=== PATIENT | female | born 1945 | race African-American/Black ===

== ENCOUNTER 2018-08-12 22:07 | Emergency (ER) | payer MEDICARE, MEDICAID ==
--- NOTE | 2018-08-12 22:37 | RADIOLOGY REPORT (SQ) ---
EXAM DESCRIPTION: XR ANKLE 2 VIEWS COMPLETED DATE/TME: 08/12/2018 00:00 CLINICAL HISTORY: 72 years, Female, ankle gave out this afternoon COMPARISON: None. NUMBER OF VIEWS: 2 TECHNIQUE: 2 views right ankle LIMITATIONS: None. FINDINGS: Osteopenia. Minimally displaced medial malleolus fracture. Mildly displaced lateral malleolar fracture as well. Diffuse soft tissue swelling. Small plantar heel spurs. Slight widening of the ankle mortise anteriorly on the lateral view without caryn dislocation IMPRESSION: Medial and lateral malleolus fractures with widening of the anterior ankle mortise on the lateral view. Osteopenia. Soft tissue swelling copyright 2010 [employer]- All Rights Reserved
[2018-08-12] MEDS ORDERED: ONDANSETRON 4 MG TAB.RAPDIS PO ONE (22:53)
[2018-08-12] MEDS ORDERED: OXYCODONE-ACETAMINOPHEN 5-325 MG TABLET PO ONE (22:53)
--- NOTE | 2018-08-13 01:08 | RADIOLOGY REPORT (SQ) ---
EXAM DESCRIPTION: XR ANKLE 2 VIEWS COMPLETED DATE/TME: 08/12/2018 22:54 CLINICAL HISTORY: 72 years, Female, post-reduction view, wait for call COMPARISON: Right ankle x-ray from today's date NUMBER OF VIEWS: 2 TECHNIQUE: 2 view right ankle LIMITATIONS: None. FINDINGS: Casting material obscures bony detail. Improvement in the widening of the tibiotalar joint space. Medial and lateral malleoli fractures are again noted IMPRESSION: Improved alignment as above copyright 2010 [employer]- All Rights Reserved
[2018-08-13 01:17] VITALS: BP 117/53
--- NOTE | 2018-08-13 08:01 | ER Document Report ---
Entered by ONEYDA HEART SCRIBE 08/12/18 [id number] Acting as scribe for:CHINO VALLEJO DO ED General - General Chief Complaint: Ankle Injury Stated Complaint: RIGHT ANKLE PAIN Time Seen by Provider: 08/12/18 22:35 Primary Care Provider: BUZZ MACHADO MD [Primary Care Provider] - Follow up as needed MARICARMEN LEDEZMA MD [ACTIVE STAFF] - 08/15/18 Mode of Arrival: Wheelchair Information source: Patient Notes: Patient is a 33-year-old female with a seizure disorder presents to the emergency department complaining of right ankle pain onset tonight. Patient states that her right ankle suddenly "gave out" while dancing. Patient denies any other focal symptoms or injuries at this time. Patient states she is currently prescribed Dilantin. She denies being on blood thinners. TRAVEL OUTSIDE OF THE [place] IN LAST 30 DAYS: No - Related Data Allergies/Adverse Reactions: No Known Allergies Allergy (Verified 05/22/12 09:32) Past Medical History - General Information source: Patient - Social History Smoking Status: Never Smoker Cigarette use (# per day): No Chew tobacco use (# tins/day): Yes Smoking Education Provided: No Frequency of alcohol use: Social Drug Abuse: None Family History: Reviewed & Not Pertinent Patient has suicidal ideation: No Patient has homicidal ideation: No - Past Medical History Cardiac Medical History: Reports: Hx Hypertension Neurological Medical History: Reports: Hx Seizures Renal/ Medical History: Denies: Hx Peritoneal Dialysis GI Medical History: Reports: Hx Gastroesophageal Reflux Disease Musculoskeletal Medical History: Reports Hx Arthritis Past Surgical History: Reports: Hx Appendectomy, Hx Cholecystectomy, Hx Hysterectomy - Immunizations Hx Diphtheria, Pertussis, Tetanus Vaccination: No Review of Systems - Review of Systems Constitutional: No symptoms reported EENT: No symptoms reported Cardiovascular: No symptoms reported Respiratory: No symptoms reported Gastrointestinal: No symptoms reported Genitourinary: No symptoms reported Female Genitourinary: No symptoms reported Musculoskeletal: See HPI Skin: No symptoms reported Hematologic/Lymphatic: No symptoms reported Neurological/Psychological: No symptoms reported -: Yes All other systems reviewed and negative Physical Exam - Vital signs Vitals: Temp Pulse Resp BP Pulse Ox 97.3 F 78 16 112/66 99 08/12/18 22:16 08/12/18 22:16 08/12/18 22:16 08/12/18 22:16 08/12/18 22:16 - Notes Notes: GENERAL: Alert, interacts well. No acute distress. HEAD: Normocephalic, atraumatic. EYES: Pupils equal, round, and reactive to light. Extraocular movements intact. ENT: Oral mucosa moist, tongue midline. NECK: Full range of motion. Supple. Trachea midline. LUNGS: Trace respiratory wheezing anteriorly. No rales or rhonchi. No respiratory distress. HEART: Regular rate and rhythm. No murmurs, gallops, or rubs. ABDOMEN: Soft, non-tender. Non-distended. Bowel sounds present in all 4 quadrants. No guarding, rigidity, or rebound. EXTREMITIES: Moves all 4 extremities spontaneously. Right ankle is grossly swollen, tender to palpate the distal bilateral malleoli. Normal sensations, able to wiggle toes, good capillary refill. Radial and dorsalis pedis pulses 2/4 bilaterally. No cyanosis. NEUROLOGICAL: Alert and oriented x3. Normal speech. PSYCH: Normal affect, normal mood. SKIN: Warm, dry. Course - Re-evaluation Re-evalutation: 08/13/18 01:05 Right ankle shows medial and lateral malleolus fractures with widening of the anterior ankle mortise joint in the lateral view, minimal displacement. No dislocation. Patient's ankle was splinted using a stirrup splint and short leg posterior splint. Rechecked, splint is in good position. Discharged to home with medication for pain control and recommendation to follow-up with orthopedics as an outpatient on Wednesday. Call the office for an appointment. - Vital Signs Vital signs: Temp Pulse Resp BP Pulse Ox 97.7 F 99 16 117/53 L 99 08/13/18 01:11 08/13/18 01:11 08/13/18 01:11 08/13/18 01:11 08/12/18 22:16 Procedures - Immobilization Right Ankle Pre-Proc Neuro Vasc Exam: Normal Immobilizer type: Other - Ankle stirrup and short leg posterior. Performed by: PCT Post-Proc Neuro Vasc Exam: Normal, Unchanged from pre-exam Alignment checked and good: Yes Discharge - Discharge Clinical Impression: Fracture of distal end of tibia with fibula Qualifiers: Encounter type: initial encounter Fracture type: closed Laterality: right Qualified Code(s): S82.831A - Other fracture of upper and lower end of right fibula, initial encounter for closed fracture; S82.301A - Unspecified fracture of lower end of right tibia, initial encounter for closed fracture Traumatic closed fracture of distal tibia with fibula with minimal displacement Qualifiers: Encounter type: initial encounter Laterality: right Qualified Code(s): S82.301A - Unspecified fracture of lower end of right tibia, initial encounter for closed fracture; S82.831A - Other fracture of upper and lower end of right fibula, initial encounter for closed fracture Condition: Stable Disposition: HOME, SELF-CARE Additional Instructions: Fractured Ankle (Bimalleolar) You have a fracture of both bones of the lower leg at the ankle. If there is dispacement of the bones from their proper alignment, manipulation of the ankle and foot may be necessary to re-align the bones properly. This fracture wll require a cast for healing and some of the more serious fractures of this type will require surgery. If surgery is not required, the bones requires only protection and sufficient time for healing. The initial treatment is immobilization, elevation, and ice packs. Depending on the type of fracture, immobilization may consist of a splint or cast. The length of time required for healing depends on the type of fracture. You will be referred to an orthopedic surgeon who will re-assess you periodically to make certain that the bone heals without complications. It's important that you follow the instructions given you. Please call the orthopedic surgeon on Wednesday to arrange a follow-up appointment. Splint Pending Casting Your injury can't be casted until the swelling has subsided. Therefore, a temporary splint has been placed to protect the injury. Full use of an injured area is not possible in a splint. You should follow the doctor's instructions concerning rest, ice, and elevation of the injury. Never do anything which causes pain under the splint. Keep the splint on ALL THE TIME until you return for casting. If there is unexpected severe pain, or numbness, discoloration, or swelling beyond the splint, you should return at once. Prescriptions: Hydrocodone/Acetaminophen [Salley 5-325 mg Tablet] 1 - 2 tab PO Q6HP PRN #20 tablet PRN Reason: Referrals: BUZZ MACHADO MD [Primary Care Provider] - Follow up as needed MARICARMEN LEDEZMA MD [ACTIVE STAFF] - 08/15/18 I personally performed the services described in the documentation, reviewed and edited the documentation which was dictated to the scribe in my presence, and it accurately records my words and actions.
== END 2018-08-13 01:38 | disposition home or self-care (01) ==
LOC: ER 22:07
DX: S82.831A Other fracture of upper and lower end of right fibula, initial encounter for closed fracture (principal); S82.301A Unspecified fracture of lower end of right tibia, initial encounter for closed fracture; X58.XXXA Exposure to other specified factors, initial encounter; Y93.41 Activity, dancing; I10 Essential (primary) hypertension; Z90.49 Acquired absence of other specified parts of digestive tract; Z90.710 Acquired absence of both cervix and uterus
CPT/HCPCS: 99283; 73600; 29515; A9270 ×2; S0119

== ENCOUNTER 2018-08-17 05:24 | Day surgery (SDC) | payer MEDICARE, MEDICAID ==
[~2018-08-17 05:24] MED LIST: CEFAZOLIN 2 GM/D5W RTU 2 GM/50 ML RTUPB IV ONE
[2018-08-17 06:26] LABS: ABSOLUTE BASOPHILS # (AUTO) 0.1 10^3/uL (0.0-0.2); ABSOLUTE EOSINOPHILS # (AUTO) 0.4 10^3/uL (0.0-0.6); ABSOLUTE LYMPHOCYTES (AUTO) 1.8 10^3/uL (0.5-4.7); ABSOLUTE MONOCYTES (AUTO) 0.4 10^3/uL (0.1-1.4); ABSOLUTE NEUT (AUTO) 1.4 10^3/uL (1.7-8.2); EOSINOPHILS % (AUTO) 10.6 % (0-6); HEMATOCRIT 28.2 % (36.0-47.0); HEMOGLOBIN 9.2 g/dL (12.0-15.5); MEAN CORPUSCULAR HEMOGLOBIN 33.9 pg (27.0-33.4); MEAN CORPUSCULAR HGB CONC 32.7 g/dL (32.0-36.0); MEAN CORPUSCULAR VOLUME 104 fl (80-97); MONOCYTES % (AUTO) 9.4 % (3-13); PLATELET COUNT 230 10^3/uL (150-450); RED BLOOD COUNT 2.73 10^6/uL (3.72-5.28); RED CELL DISTRIBUTION WIDTH 16.9 % (11.5-14.0); TOTAL CELLS COUNTED % (AUTO) 100 %; WHITE BLOOD COUNT 4.2 10^3/uL (4.0-10.5)
[2018-08-17 06:42] LABS: ANION GAP 8 (5-19); BLOOD UREA NITROGEN 42 mg/dL (7-20); CALCIUM 9.5 mg/dL (8.4-10.2); CARBON DIOXIDE 15 mmol/L (22-30); CHLORIDE 116 mmol/L (98-107); GLUCOSE 90 mg/dL (75-110); POTASSIUM 4.9 mmol/L (3.6-5.0)
--- NOTE | 2018-08-17 06:58 | RADIOLOGY REPORT (SQ) ---
EXAM DESCRIPTION: XR CHEST 1 VIEW COMPLETED DATE/TME: 08/17/2018 00:00 CLINICAL HISTORY: 72 years, Female, preop. BED 6 COMPARISON: None. NUMBER OF VIEWS: One TECHNIQUE: AP view of the chest LIMITATIONS: None. FINDINGS: The lungs are clear. The heart is normal in size. There is no pneumothorax or pleural effusion. There is no acute fracture. IMPRESSION: No acute cardiopulmonary abnormality copyright 2010 [employer]- All Rights Reserved
[2018-08-17] MEDS ORDERED: LIDOCAINE 2% INJ-PF (100 MG/5 ML) SYRINGE ONE (07:03)
[2018-08-17] MEDS ORDERED: FENTANYL CITRATE INJ/PF 250 MCG/5 ML AMPULE ONE (07:03)
[2018-08-17] MEDS ORDERED: MIDAZOLAM 2 MG/2 ML INJ ONE (07:03)
[2018-08-17] MEDS ORDERED: HYDROMORPHONE HCL INJ/PF 2 MG/ML AMPULE ONE (07:03)
[2018-08-17] MEDS ORDERED: PROPOFOL INJ 200 MG/20 ML VIAL IV ONE (07:04)
[2018-08-17] MEDS ORDERED: BUPIVACAINE HCL 0.5%-EPI 1:200000 INJ/PF 30 ML VIAL ONE (07:13)
[2018-08-17] MEDS ORDERED: DIPHENHYDRAMINE HCL 50 MG/ML VIAL IV PRN (08:03)
[2018-08-17] MEDS ORDERED: PROMETHAZINE HCL INJ 25 MG/1 ML VIAL IV PRN ×2 (08:03)
[2018-08-17] MEDS ORDERED: FENTANYL CITRATE INJ/PF 100 MCG/2 ML AMPUL IV PRN ×3 (08:03)
[2018-08-17] MEDS ORDERED: MEPERIDINE HCL/PF INJ 25 MG/1 ML DISP.SYRIN IV PRN (08:03)
[2018-08-17] MEDS ORDERED: HYDROMORPHONE HCL INJ/PF 2 MG/ML AMPULE IV PRN (08:04)
--- NOTE | 2018-08-17 08:24 | Discharge Summary ---
Discharge Summary (SDC) - Discharge Final Diagnosis: Right bimalleolar ankle fracture Date of Surgery: 08/17/18 Discharge Date: 08/17/18 Condition: Good Treatment or Instructions: Touchdown weightbearing restriction right lower extremity. Elevate when possible. Prescriptions: Oxycodone HCl/Acetaminophen [Percocet 5-325 mg Tablet] 1 tab PO Q6 PRN #40 tablet PRN Reason: Referrals: BUZZ MACHADO MD [Primary Care Provider] - Discharge Diet: As Tolerated, Regular Respiratory Treatments at Home: Deep Breathing/Coughing Discharge Activity: Balance Activity w/Rest, No Driving, No tub bath Home Care Assistance: None Needed Adaptive Devices on Discharge: Axillary Crutches, Rolling Walker Report the Following to Your Physician Immediately: Shortness of Breath, Fever over 101 Degrees, Drainage-Foul Smelling
--- NOTE | 2018-08-17 08:26 | Operative Report ---
Operative Report DATE OF SURGERY: 08/17/18 PREOPERATIVE DIAGNOSIS: Right bimalleolar ankle fracture OPERATION: Open reduction internal fixation right bimalleolar ankle fracture SURGEON: MARICARMEN LEDEZMA ANESTHESIA: GA ESTIMATED BLOOD LOSS: 25 PROCEDURE: With the patient supine on the operating table the right lower extremities prepped and draped in a sterile fashion. Limb is elevated for exsanguination tourniquet inflated 280 torr. A longitudinal incision was made over the distal fibula and sharp dissection was carried the incision through the periosteum. The periosteum is elevated. The underlying fracture was identified. Its reduced anatomically under direct visualization held in place a lobster claw clamp. Subsequently Hidalgo titanium distal fibula plate is applied and secured with 5 screws distally and 4 screws proximally. Next longitudinal incision was made over the medial malleolus. Under direct visualization there is an anatomic reduction of the medial malleolus fracture. Is held in place with 2 pins which are subsequently used for 4 mm cannulated screws to secure the reduction. Hardware placement fracture reduction check fluoroscopically in 2 planes and felt to be adequate. At this point the tourniquet is deflated. Hemostasis obtained with electrocautery. The wound is irrigated with bulb lavage. Local anesthesia is infiltrated. The wound was then closed in layers interrupted Vicryl followed by guillermina. A sterile compressive dressing posterior plaster splint were applied and the patient's return to the PACU in satisfactory condition.
[2018-08-17] MEDS: FENTANYL CITRATE INJ/PF 100 MCG/2 ML AMPUL ONE ×2 (08:50→08:55)
--- NOTE | 2018-08-17 09:14 | RADIOLOGY REPORT (SQ) ---
EXAM DESCRIPTION: NO CHG FLUORO; ANKLE RIGHT AP/LATERAL COMPLETED DATE/TIME: 08/17/2018 8:59 am REASON FOR STUDY: ORIF RIGHT ANKLE ASST WITH FLUORO IN OR S82.841A DISPLACED BIMALLEOLAR FRACTURE O F RIGHT LOWER LEG, Z79.899 OTHER LONGTERM (CURRENT) DRUG THERAPY COMPARISON: Preoperative radiographs FLUOROSCOPY TIME: 0.2 minutes 3 images saved to PACS. TECHNIQUE: Intra-operative images acquired during surgical procedure to evaluate progress. NUMBER OF IMAGES: 3 LIMITATIONS: None. FINDINGS: Patient undergoing open reduction internal fixation of ankle fractures. Please correlate with operative note. IMPRESSION: IMAGE(S) OBTAINED DURING PROCEDURE. COMMENT: Quality ID 145: Final reports for procedures using fluoroscopy that document radiation exp osure indices, or exposure time and number of fluorographic images (if radiation exposure indices are not available) Please consult full operative report of the attending physician for description of the procedure. TECHNICAL DOCUMENTATION: JOB ID: [id number] [employer]- All Rights Reserved Reading location - IP/workstation name: [email or web address]
--- NOTE | 2018-08-17 09:14 | RADIOLOGY REPORT (SQ) ---
EXAM DESCRIPTION: NO CHG FLUORO; ANKLE RIGHT AP/LATERAL COMPLETED DATE/TIME: 08/17/2018 8:59 am REASON FOR STUDY: ORIF RIGHT ANKLE ASST WITH FLUORO IN OR S82.841A DISPLACED BIMALLEOLAR FRACTURE O F RIGHT LOWER LEG, Z79.899 OTHER LONG-TERM (CURRENT) DRUG THERAPY COMPARISON: Preoperative radiographs FLUOROSCOPY TIME: 0.2 minutes 3 images saved to PACS. TECHNIQUE: Intra-operative images acquired during surgical procedure to evaluate progress. NUMBER OF IMAGES: 3 LIMITATIONS: None. FINDINGS: Patient undergoing open reduction internal fixation of ankle fractures. Please correlate with operative note. IMPRESSION: IMAGE(S) OBTAINED DURING PROCEDURE. COMMENT: Quality ID 145: Final reports for procedures using fluoroscopy that document radiation exp osure indices, or exposure time and number of fluorographic images (if radiation exposure indices are not available) Please consult full operative report of the attending physician for description of the procedure. TECHNICAL DOCUMENTATION: JOB ID: [id number] [email or web address]- All Rights Reserved Reading location - IP/workstation name: [email or web address]
[2018-08-17] MEDS ORDERED: OXYCODONE-ACETAMINOPHEN 5-325 MG TABLET PO ONE (09:30)
[2018-08-17] MEDS ORDERED: PHENYLEPHRINE HCL INJ/PF 10 MG/1 ML SDV ONE (11:43)
[2018-08-17] MEDS ORDERED: ONDANSETRON HCL INJ/PF 4 MG/2 ML SDV ONE (11:43)
[2018-08-17] MEDS ORDERED: DEXAMETHASONE SOD PHOSPHATE INJ 4 MG/1 ML VIAL ONE (11:43)
[2018-08-17 11:44] VITALS: BP 108/61
--- NOTE | 2018-08-17 17:55 | EKG REPORT ---
SEVERITY:- NORMAL ECG - SINUS RHYTHM : Confirmed by: Tigre Berumen 17-Aug-2018 17:54:57
== END 2018-08-17 10:35 | disposition home or self-care (01) ==
LOC: OROUT 05:24
PROVIDERS: ATTEND Orthopaedic Surgery
DX: S82.841A Displaced bimalleolar fracture of right lower leg, initial encounter for closed fracture (principal); W19.XXXA Unspecified fall, initial encounter; E78.00 Pure hypercholesterolemia, unspecified; J45.909 Unspecified asthma, uncomplicated; K21.9 Gastro-esophageal reflux disease without esophagitis; I10 Essential (primary) hypertension; G40.901 Epilepsy, unspecified, not intractable, with status epilepticus; Z79.899 Other long term (current) drug therapy; Z79.51 Long term (current) use of inhaled steroids
CPT/HCPCS: 36415; 85025; 80048; 73600; 71045; 93005; 93010; 01480; 27814; C1713 ×7; C1769; J3490; J1100; J3010 ×2; J2001; J1170; J2370; J2405; J2704; J0690; J2250

== ENCOUNTER 2019-12-01 11:23 | Emergency (ER) | payer MEDICARE, MEDICAID ==
--- NOTE | 2019-12-01 11:56 | ER Document Report ---
ED Medical Screen (RME) - General Chief Complaint: Shoulder Injury Stated Complaint: LEFT ARM PAIN/FALL Time Seen by Provider: 12/01/19 11:47 Primary Care Provider: BUZZ BOBO MD [Primary Care Provider] - Follow up as needed Mode of Arrival: Ambulatory Information source: Patient Notes: 74-year-old female presented to ED for pain to the left shoulder. She states she fell on Wednesday hitting her shoulder on a TV stand. The shoulder is ecchymotic swollen very painful very little range of motion to the shoulder. She states she was taking meloxicam and ibuprofen and she was told by Dr. Bobo to stop taking the medicines and to come into the emergency room right away. She states she was also took Valium this morning for the pain. She is alert oriented respirations regular nonlabored speaking in full sentences. I have greeted and performed a rapid initial assessment of this patient. A comprehensive ED assessment and evaluation of the patient, analysis of test results and completion of medical decision making process will be conducted by an additional ED providers. TRAVEL OUTSIDE OF THE [place] IN LAST 30 DAYS: No - Related Data Allergies/Adverse Reactions: No Known Allergies Allergy (Verified 12/01/19 11:31) Home Medications: blood pressure pill Past Medical History - Social History Chew tobacco use (# tins/day): No Frequency of alcohol use: Occasional Drug Abuse: None - Past Medical History Cardiac Medical History: Reports: Hx Hypertension Denies: Hx Coronary Artery Disease, Hx Heart Attack Pulmonary Medical History: Reports: Hx Asthma Denies: Hx Bronchitis, Hx COPD, Hx Pneumonia Neurological Medical History: Reports: Hx Seizures. Denies: Hx Cerebrovascular Accident Renal/ Medical History: Denies: Hx Peritoneal Dialysis GI Medical History: Reports: Hx Gastroesophageal Reflux Disease Musculoskeltal Medical History: Reports Hx Arthritis Past Surgical History: Reports: Hx Appendectomy, Hx Cholecystectomy, Hx Hysterectomy - Immunizations Hx Diphtheria, Pertussis, Tetanus Vaccination: No Physical Exam - Vital signs Vitals: Temp Pulse Resp BP Pulse Ox 98.4 F 101 H 18 127/56 H 99 12/01/19 11:28 12/01/19 11:28 12/01/19 11:28 12/01/19 11:28 12/01/19 11:28 Course - Vital Signs Vital signs: Temp Pulse Resp BP Pulse Ox 98.4 F 101 H 18 127/56 H 99 12/01/19 11:28 12/01/19 11:28 12/01/19 11:28 12/01/19 11:28 12/01/19 11:28 Doctor's Discharge - Discharge Referrals: BUZZ BOBO MD [Primary Care Provider] - Follow up as needed
[2019-12-01 12:26] LABS: ABSOLUTE EOSINOPHILS # (AUTO) 0.3 10^3/uL (0.0-0.6); ABSOLUTE MONOCYTES (AUTO) 0.3 10^3/uL (0.1-1.4); ABSOLUTE NEUT (AUTO) 1.6 10^3/uL (1.7-8.2); BASOPHILS % (AUTO) 0.9 % (0-2); EOSINOPHILS % (AUTO) 7.8 % (0-6); HEMATOCRIT 24.4 % (36.0-47.0); HEMOGLOBIN 8.4 g/dL (12.0-15.5); LYMPHOCYTES % (AUTO) 46.6 % (13-45); MEAN CORPUSCULAR HEMOGLOBIN 36.2 pg (27.0-33.4); MEAN CORPUSCULAR HGB CONC 34.5 g/dL (32.0-36.0); MEAN CORPUSCULAR VOLUME 105 fl (80-97); PLATELET COUNT 383 10^3/uL (150-450); RED BLOOD COUNT 2.32 10^6/uL (3.72-5.28); RED CELL DISTRIBUTION WIDTH 16.2 % (11.5-14.0); SEGMENTED NEUTROPHILS % (AUTO) 37.7 % (42-78); TOTAL CELLS COUNTED % (AUTO) 100 %; WHITE BLOOD COUNT 4.2 10^3/uL (4.0-10.5)
[2019-12-01 12:32] LABS: INTERNATIONAL RATION (INR) 0.93; PARTIAL THROMBOPLASTIN TIME 24.1 SEC (23.5-35.8); PROTHROMBIN TIME 12.7 SEC (11.4-15.4)
--- NOTE | 2019-12-01 12:33 | RADIOLOGY REPORT (SQ) ---
EXAM DESCRIPTION: SHOULDER LEFT 2 OR MORE VIEWS IMAGES COMPLETED DATE/TIME: 12/01/2019 12:21 pm REASON FOR STUDY: Pain deformity left shoulder swelling bruising COMPARISON: None. NUMBER OF VIEWS: Two views. TECHNIQUE: Frontal and Y-view acquired of the left shoulder. LIMITATIONS: None. FINDINGS: MINERALIZATION: Decreased. BONES: Highly comminuted left humeral surgical neck fracture. Mild shortening and medial displacemen t of the distal fracture fragment. No evidence of glenohumeral dislocation JOINTS: No dislocation. VISUALIZED LUNGS AND RIBS: No pneumothorax. No rib fracture. SOFT TISSUES: No radiopaque foreign body. OTHER: No other significant finding. IMPRESSION: Highly comminuted left humeral surgical neck fracture with mild shortening and medial di splacement of the distal fracture fragment. TECHNICAL DOCUMENTATION: JOB ID: [id number] 2010 [employer]- All Rights Reserved Reading location - IP/workstation name: [email or web address]
[2019-12-01] MEDS ORDERED: MORPHINE SULFATE 10 MG/ML INJ IM ONE (12:39)
[2019-12-01 12:46] LABS: ALBUMIN 3.5 g/dL (3.5-5.0); ALKALINE PHOSPHATASE 61 U/L (38-126); ANION GAP 12 (5-19); ASPARTATE AMINO TRANSFERASE 15 U/L (14-36); BILIRUBIN,DIRECT 0.3 mg/dL (0.0-0.4); BILIRUBIN,TOTAL 0.3 mg/dL (0.2-1.3); BLOOD UREA NITROGEN 33 mg/dL (7-20); CALCIUM 9.2 mg/dL (8.4-10.2); CARBON DIOXIDE 22 mmol/L (22-30); CHLORIDE 103 mmol/L (98-107); GLUCOSE 102 mg/dL (75-110); POTASSIUM 3.2 mmol/L (3.6-5.0); TOTAL PROTEIN 6.4 g/dL (6.3-8.2)
[2019-12-01] MEDS ORDERED: ONDANSETRON HCL INJ/PF 4 MG/2 ML SDV IV ONE (14:54)
[2019-12-01] MEDS ORDERED: MORPHINE SULFATE 10 MG/ML INJ IV ONE (14:55)
--- NOTE | 2019-12-01 14:55 | ER Document Report ---
ED Extremity Problem, Upper - General Chief Complaint: Shoulder Injury Stated Complaint: LEFT ARM PAIN/FALL Time Seen by Provider: 12/01/19 11:47 Primary Care Provider: BUZZ MACHADO MD [Primary Care Provider] - Follow up in 3-5 days (for follow up for your low potassium and low hemoglobin (anemia)) BATSHEVA GONZALEZ MD [ACTIVE STAFF] - Follow up in 3-5 days Mode of Arrival: Ambulatory TRAVEL OUTSIDE OF THE [place] IN LAST 30 DAYS: No - HPI Notes: 74-year-old female with history of seizures, hypertension to the emergency department with her daughter with complaints of left arm injury that occurred 1 week ago. She states she was in her home when she had a mechanical fall. She states she slipped and fell and struck her arm. She states that she thought maybe she had just bruised it. She states that she is not really able to move and has not been able to move it for about a week. She has been putting Voltaren gel on it and taking it off the counter. She states that the pain is gotten significant enough that she feels like she needs to get seen. She denies any head injuries or losing consciousness. She denies any other injuries. She denies any hip pain. - Related Data Allergies/Adverse Reactions: No Known Allergies Allergy (Verified 12/01/19 11:31) Home Medications: blood pressure pill Past Medical History - General Information source: Patient - Social History Smoking Status: Never Smoker Chew tobacco use (# tins/day): No Frequency of alcohol use: Occasional Drug Abuse: None Family History: Reviewed & Not Pertinent Patient has homicidal ideation: No - Past Medical History Cardiac Medical History: Reports: Hx Hypertension Denies: Hx Coronary Artery Disease, Hx Heart Attack Pulmonary Medical History: Reports: Hx Asthma Denies: Hx Bronchitis, Hx COPD, Hx Pneumonia Neurological Medical History: Reports: Hx Seizures. Denies: Hx Cerebrovascular Accident Renal/ Medical History: Denies: Hx Peritoneal Dialysis GI Medical History: Reports: Hx Gastroesophageal Reflux Disease Musculoskeletal Medical History: Reports Hx Arthritis Past Surgical History: Reports: Hx Appendectomy, Hx Cholecystectomy, Hx Hysterectomy - Immunizations Hx Diphtheria, Pertussis, Tetanus Vaccination: No Review of Systems - Review of Systems Constitutional: denies: Chills, Fever EENT: No symptoms reported Cardiovascular: denies: Chest pain, Palpitations, Dyspnea, Syncope, Dizziness, Lightheaded Respiratory: denies: Cough, Short of breath Gastrointestinal: denies: Abdominal pain, Diarrhea, Nausea, Vomiting Musculoskeletal: See HPI - Left arm injury, swelling, pain after fall, see HPI, Joint pain, Joint swelling Skin: No symptoms reported Hematologic/Lymphatic: No symptoms reported Neurological/Psychological: No symptoms reported -: Yes All other systems reviewed and negative Physical Exam - Vital signs Vitals: Temp Pulse Resp BP Pulse Ox 98.4 F 101 H 18 127/56 H 99 12/01/19 11:28 12/01/19 11:28 12/01/19 11:28 12/01/19 11:28 12/01/19 11:28 Interpretation: Normal - General General appearance: Appears well, Alert In distress: Mild Notes: Mild pain discomfort and distress, guarding the arm - HEENT Head: Normocephalic, Atraumatic Eyes: Normal Pupils: PERRL - Respiratory Respiratory status: No respiratory distress Chest status: Nontender Breath sounds: Normal. No: Rales, Rhonchi, Wheezing Chest palpation: Normal - Cardiovascular Rhythm: Regular Heart sounds: Normal auscultation Murmur: No - Abdominal Inspection: Normal Distension: No distension Bowel sounds: Normal Tenderness: Nontender Organomegaly: No organomegaly - Extremities Notes: There is tenderness to palpation to the left upper extremity. There is tenderness just below the shoulder joint and noted deformity. There is also tenderness into the axilla. The upper arm is also edematous. There is no tenderness to palpation of the elbow, wrist, hand. She has 5 out of 5 strength in handgrip bilaterally. Radial pulses are intact and equal bilaterally cap refill is less than 2 seconds throughout all fingers. She is unable to utilize the left shoulder likely due to deformity. She can flex and extend the left elbow without any difficulty and it has 5 out of 5 strength against resistance in flexion and extension at the elbow. She denies any sensation decreased. - Neurological Neuro grossly intact: Yes Cognition: Normal Orientation: AAOx4 Taran Coma Scale Eye Opening: Spontaneous [place] Coma Scale Verbal: Oriented Taran Coma Scale Motor: Obeys Commands Taran Coma Scale Total: 15 Speech: Normal Cranial nerves: Normal Cerebellar coordination: Normal Motor strength normal: LUE, RUE, LLE, RLE Additional motor exam normals: Equal beaver trapper Sensory: Normal - Psychological Associated symptoms: Normal affect, Normal mood - Skin Skin Temperature: Warm Skin Moisture: Dry Skin Color: Normal Course - Re-evaluation Re-evalutation: I discussed patient with Dr. Ornelas by ER attending., We will call orthopedist national facilities manager regarding her humeral surgical neck fracture and discussed the patient with him. Noted lab work. Patient has anemia which is about where she usually is and she has a little bit of acute kidneyDisease. This is actually improved from her last visit with us in 2019.She has some hypokalemia. Will collect a magnesium and phosphorus as well. Spoke with Dr. Gonzalez, orthopedist national facilities manager. He was able to review the plain films. He feels like she can be put into a shoulder immobilizer and follow-up with him in the office. I did advise him of her lab findings and he states that that is okay. He states he would like for the daughter to call the office today to get an appointment to see him by Wednesday. Impression: Left surgical neck fracture of the left humerus. Noted anemia which is chronic as well as elevated creatinine. Hypokalemia. Magnesium within normal limits. We will go ahead and dose with potassium here and sent home with potassium. Advised her of the potassium and antigenemia. We will have her follow with primary care about this. Patient agrees with the plan. I discussed the plan with her daughter as well and she agrees as well. She is going to call Dr. Gonzalez's office right now and set up an appointment. - Vital Signs Vital signs: Temp Pulse Resp BP Pulse Ox 98.1 F 81 18 115/61 98 12/01/19 16:30 12/01/19 16:30 12/01/19 16:30 12/01/19 16:30 12/01/19 16:30 - Laboratory Result Diagrams: 12/01/19 12:05 12/01/19 12:05 Laboratory results interpreted by me: 12/01/19 12/01/19 12/01/19 12:05 12:05 12:05 RBC 2.32 L Hgb 8.4 L Hct 24.4 L MCV 105 H MCH 36.2 H RDW 16.2 H Lymph % (Auto) 46.6 H Eos % (Auto) 7.8 H Absolute Neuts (auto) 1.6 L Seg Neutrophils % 37.7 L Potassium 3.2 L BUN 33 H Creatinine 1.47 H Est GFR ( Amer) 42 L Est GFR (MDRD) Non-Af 35 L Phosphorus 4.6 H - Diagnostic Test Radiology reviewed: Image reviewed, Reports reviewed Procedures - Immobilization Left Arm Pre-Proc Neuro Vasc Exam: Normal Immobilizer type: Shoulder immobilizer Performed by: PCT Post-Proc Neuro Vasc Exam: Normal Alignment checked and good: Yes Discharge - Discharge Clinical Impression: Hypokalemia Fall Qualifiers: Encounter type: initial encounter Qualified Code(s): W19.XXXA - Unspecified fall, initial encounter Humeral surgical neck fracture Qualifiers: Encounter type: initial encounter Fracture type: closed Fracture morphology: unspecified fracture morphology Fracture alignment: displaced Laterality: left Qualified Code(s): S42.212A - Unspecified displaced fracture of surgical neck of left humerus, initial encounter for closed fracture Anemia Qualifiers: Anemia type: unspecified type Qualified Code(s): D64.9 - Anemia, unspecified Condition: Stable Disposition: HOME, SELF-CARE Instructions: Anemia ([facility]), Hypokalemia ([facility]), Fracture Proximal Humerus Additional Instructions: Follow up with Dr. Gonzalez without fail for follow up of your humerus fracture; please call his office for an appointment. Return immediately if worsening symptoms. Wear shoulder immobilizer without fail. Take pain medicines. Use ice three times a day for 20 minutes at a time. Prescriptions: Hydrocodone/Acetaminophen [[place] 5-325 mg Tablet] 1 tab PO Q4H #15 tablet Potassium Chloride 20 meq PO DAILY #10 tab.er.prt Referrals: BUZZ MACHADO MD [Primary Care Provider] - Follow up in 3-5 days (for follow up for your low potassium and low hemoglobin (anemia)) BATSHEVA GONZALEZ MD [ACTIVE STAFF] - Follow up in 3-5 days
[2019-12-01 15:37] LABS: PHOSPHORUS 4.6 mg/dL (2.5-4.5)
[2019-12-01] MEDS ORDERED: POTASSIUM CHLORIDE 10 MEQ TABLET.ER PO ONE (15:55)
[2019-12-01 16:34] VITALS: BP 115/61
== END 2019-12-01 16:15 | disposition home or self-care (01) ==
LOC: ER 11:23
DX: S42.212A Unspecified displaced fracture of surgical neck of left humerus, initial encounter for closed fracture (principal); W01.190A Fall on same level from slipping, tripping and stumbling with subsequent striking against furniture, initial encounter; Y92.009 Unspecified place in unspecified non-institutional (private) residence as the place of occurrence of the external cause; E87.6 Hypokalemia; D64.9 Anemia, unspecified; N28.9 Disorder of kidney and ureter, unspecified; I10 Essential (primary) hypertension; J45.909 Unspecified asthma, uncomplicated; Z79.899 Other long term (current) drug therapy
CPT/HCPCS: 99284; 96372; 96374; 96375; 36415; 83735; 84100; 85025; 85610; 85730; 80053; 73030; J2270; J2405; A9270

== ENCOUNTER 2019-12-08 08:59 | Day surgery (SDC) | payer MEDICARE, MEDICAID ==
[~2019-12-08 08:59] MED LIST changes: -CEFAZOLIN 2 GM/D5W RTU 2 GM/50 ML RTUPB IV ONE; +DEXAMETHASONE SOD PHOSPHATE INJ 4 MG/1 ML VIAL ONE; +FENTANYL CITRATE INJ/PF 100 MCG/2 ML AMPUL ONE; +FENTANYL CITRATE INJ/PF 250 MCG/5 ML AMPULE ONE; +MIDAZOLAM 2 MG/2 ML INJ ONE; +ONDANSETRON HCL INJ/PF 4 MG/2 ML SDV ONE; +PROPOFOL INJ 200 MG/20 ML VIAL IV ONE; +TRANEXAMIC ACID INJ/PF 1,000 MG/10 ML SDV ONE
[2019-12-08 10:27] LABS: ABSOLUTE EOSINOPHILS # (AUTO) 0.3 10^3/uL (0.0-0.6); ABSOLUTE MONOCYTES (AUTO) 0.4 10^3/uL (0.1-1.4); RED BLOOD COUNT 2.58 10^6/uL (3.72-5.28); TOTAL CELLS COUNTED % (AUTO) 100 %
[2019-12-08] MEDS ORDERED: CEFAZOLIN 2 GM/D5W RTU 2 GM/50 ML RTUPB IV ONE (10:29)
[2019-12-08 10:37] LABS: ABSOLUTE LYMPHOCYTES (AUTO) 1.8 10^3/uL (0.5-4.7); ABSOLUTE NEUT (AUTO) 2.4 10^3/uL (1.7-8.2); BASOPHILS % (AUTO) 0.2 % (0-2); EOSINOPHILS % (AUTO) 6.5 % (0-6); HEMOGLOBIN 9.4 g/dL (12.0-15.5); LYMPHOCYTES % (AUTO) 36.7 % (13-45); MEAN CORPUSCULAR HEMOGLOBIN 36.4 pg (27.0-33.4); MEAN CORPUSCULAR HGB CONC 34.7 g/dL (32.0-36.0); MEAN CORPUSCULAR VOLUME 105 fl (80-97); MONOCYTES % (AUTO) 7.4 % (3-13); PLATELET COUNT 410 10^3/uL (150-450); RED CELL DISTRIBUTION WIDTH 15.9 % (11.5-14.0); SEGMENTED NEUTROPHILS % (AUTO) 49.2 % (42-78); WHITE BLOOD COUNT 4.9 10^3/uL (4.0-10.5)
[2019-12-08 10:44] LABS: ANION GAP 9 (5-19); BLOOD UREA NITROGEN 17 mg/dL (7-20); CARBON DIOXIDE 19 mmol/L (22-30); CHLORIDE 108 mmol/L (98-107); GLUCOSE 121 mg/dL (75-110); POTASSIUM 5.1 mmol/L (3.6-5.0)
[2019-12-08] MEDS ORDERED: FENTANYL CITRATE INJ/PF 100 MCG/2 ML AMPUL ONE (10:48)
[2019-12-08] MEDS ORDERED: ROPIVACAINE HCL 0.5% INJ/PF (5 MG/1 ML) 30 ML SDV ONE (10:51)
[2019-12-08] MEDS ORDERED: MIDAZOLAM 2 MG/2 ML INJ ONE ×2 (12:00→12:01)
[2019-12-08] MEDS ORDERED: PROMETHAZINE HCL INJ 25 MG/1 ML VIAL IV PRN ×2 (13:39)
[2019-12-08] MEDS ORDERED: ONDANSETRON HCL INJ/PF 4 MG/2 ML SDV IV PRN ×2 (13:39→15:22)
[2019-12-08] MEDS ORDERED: MEPERIDINE HCL/PF INJ 25 MG/1 ML DISP.SYRIN IV PRN (13:39)
[2019-12-08] MEDS ORDERED: DIPHENHYDRAMINE HCL 50 MG/ML VIAL IV PRN (13:39)
[2019-12-08] MEDS ORDERED: MORPHINE SULFATE 10 MG/ML INJ IV PRN (13:39)
[2019-12-08] MEDS ORDERED: FENTANYL CITRATE INJ/PF 100 MCG/2 ML AMPUL IV PRN ×3 (13:39)
[2019-12-08] MEDS ORDERED: VANCOMYCIN HCL INJ 1000 MG VIAL ONE (14:16)
--- NOTE | 2019-12-08 15:06 | Operative Report ---
Operative Report DATE OF SURGERY: 12/08/19 PREOPERATIVE DIAGNOSIS: 1. Left shoulder 4 part displaced proximal humerus fra cture. 2. Left shoulder biceps tendon rupture POSTOPERATIVE DIAGNOSIS: 1. Left shoulder 4 part displaced proximal humerus fracture. 2. Left shoulder biceps tendon rupture. 3. Left shoulder rotator cuff tear OPERATION: 1. Left shoulder open reduction internal fixation 4 part displaced proximal humerus fracture. 2. Left shoulder biceps tenodesis. 3. Left shoulder rotator cuff repair SURGEON: BATSHEVA WELLS ANESTHESIA: GA COMPLICATIONS: None ESTIMATED BLOOD LOSS: 50 cc INTRAOPERATIVE FINDINGS: Rotator cuff tear PROCEDURE: Indications for procedure: The patient is a 74-year-old woman who sustained a fall resulting in a displaced four-part fracture of the left proximal humerus. The head of the humerus was no longer in continuity with the shaft. The patient had also sustained an obvious rupture of the long head of the biceps. Description of procedure: Following the induction of a regional blockade as well as general anesthesia and the administration of 2 g of Ancef, the patient was positioned in the beachchair position. All bony prominences were padded. The left upper extremity was sterilely prepped with ChloraPrep and draped in standard fashion. An extended deltopectoral approach was performed. A sharp incision was performed through skin. Electrocautery was performed through the subcutaneous tissue. The deltopectoral interval was opened and the cephalic ve in retracted laterally. There was an abundance of scar tissue due to several weeks passing following her injury. The deltoid was mobilized. The conjoined tendon was also mobilized. Retractors were placed allowing visualization of the head. Traction sutures were placed in the lesser tuberosity and the greater tuberosity. The head was then aligned with the shaft and held into position with a Brad wire. The traction sutures were then brought from medial to lateral and tied reducing tuberosities. Intensification was brought in which demonstrated good alignment of the tuberosities and fracture. Internal fixation of the fracture was accomplished using a Foursquare periarticular proximal humeral plate. The plate was first applied in its gliding hole and its position checked under image intensification. An additional screw was then placed in the shaft. Multiple unicortical locking screws were placed in the head with care not to violate the articular surface. The 2 calcar screws were placed as long as was possible to support the head from falling into varus. 2 additional screws were then placed in the shaft. In addition to the rupture of the cuff between the greater and lesser tuberosities, there were also other small rotator cuff tears present. Grasping sutures through the cuff using 0 Vicryl were applied anteriorly, superiorly, and laterally. The sutures were then placed through holes in the plate and tied reinforcing the tuberosity internal fixation and repairing small rotator cuff tears. The wound was then copiously irrigated. 1 g of vancomycin powder was placed in the wound to prevent infection. The deltopectoral interval was allowed to close on its own. The subcutaneous tissue was closed tightly with 2-0 Vicryl. The skin was reapproximated with guillermina. A sterile dressing was then applied. The patient tolerated procedure well without complication was brought recovery in stable condition.
--- NOTE | 2019-12-08 15:17 | RADIOLOGY REPORT (SQ) ---
EXAM DESCRIPTION: HUMERUS LEFT; NO CHG FLUORO IMAGES COMPLETED DATE/TIME: 12/08/2019 3:09 pm REASON FOR STUDY: PROXIMAL HUMERUS FACTURE ASSISTED USING FLUORO S42.242A 4-PART FRACTURE OF SURGIC AL NECK OF LEFT HUMERUS, I Z79.01 CARE HOME (CURRENT) USE OF ANTICOAGULANTS COMPARISON: None. FLUOROSCOPY TIME: 0.3 minutes Spot images saved to PACS. TECHNIQUE: Intra-operative images acquired during surgical procedure to evaluate progress. NUMBER OF IMAGES: 4 LIMITATIONS: None. FINDINGS: Fluoroscopy was provided for intraoperative procedure. Please refer to the operative repo rt for further discussion. IMPRESSION: IMAGE(S) OBTAINED DURING PROCEDURE. COMMENT: Quality ID [id number]: Final reports for procedures using fluoroscopy that document radiation exp osure indices, or exposure time and number of fluorographic images (if radiation exposure indices are not available) Please consult full operative report of the attending physician for description of the procedure. TECHNICAL DOCUMENTATION: JOB ID: [id number] 2010 [employer]- All Rights Reserved Reading location - IP/workstation name: [email or web address]
--- NOTE | 2019-12-08 15:17 | RADIOLOGY REPORT (SQ) ---
EXAM DESCRIPTION: HUMERUS LEFT; NO CHG FLUORO IMAGES COMPLETED DATE/TIME: 12/08/2019 3:09 pm REASON FOR STUDY: PROXIMAL HUMERUS FACTURE ASSISTED USING FLUORO S42.242A 4-PART FRACTURE OF SURGIC AL NECK OF LEFT HUMERUS, I Z79.01 CARE HOME (CURRENT) USE OF ANTICOAGULANTS COMPARISON: None. FLUOROSCOPY TIME: 0.3 minutes Spot images saved to PACS. TECHNIQUE: Intra-operative images acquired during surgical procedure to evaluate progress. NUMBER OF IMAGES: 4 LIMITATIONS: None. FINDINGS: Fluoroscopy was provided for intraoperative procedure. Please refer to the operative repo rt for further discussion. IMPRESSION: IMAGE(S) OBTAINED DURING PROCEDURE. COMMENT: Quality ID [id number]: Final reports for procedures using fluoroscopy that document radiation exp osure indices, or exposure time and number of fluorographic images (if radiation exposure indices are not available) Please consult full operative report of the attending physician for description of the procedure. TECHNICAL DOCUMENTATION: JOB ID: [id number] 2010 [employer]- All Rights Reserved Reading location - IP/workstation name: [email or web address]
[2019-12-08] MEDS ORDERED: HYDROCODONE/ACETAMINOPHEN 5-325 MG TABLET PO PRN (15:21)
--- NOTE | 2019-12-08 16:02 | EKG REPORT ---
SEVERITY:- NORMAL ECG - SINUS RHYTHM PAC : Confirmed by: Danial Benitez MD 08-Dec-2019 16:01:20
[2019-12-08 17:08] VITALS: BP 184/98
== END 2019-12-08 16:45 | disposition home or self-care (01) ==
LOC: OROUT 08:59
PROVIDERS: ATTEND Orthopaedic Surgery
DX: S42.242A 4-part fracture of surgical neck of left humerus, initial encounter for closed fracture (principal); S46.212A Strain of muscle, fascia and tendon of other parts of biceps, left arm, initial encounter; W19.XXXA Unspecified fall, initial encounter; Z79.01 Long term (current) use of anticoagulants; I10 Essential (primary) hypertension; K21.9 Gastro-esophageal reflux disease without esophagitis; Z79.899 Other long term (current) drug therapy; G40.909 Epilepsy, unspecified, not intractable, without status epilepticus; M10.9 Gout, unspecified; M75.102 Unspecified rotator cuff tear or rupture of left shoulder, not specified as traumatic
CPT/HCPCS: 36415; 85025; 80048; 73060; 93005; 93010; 23615; 23410; 23929; J2795; J2250; J1100; J3010; J2405; J2704; J3370; J0690; 01630; C1713; J3490; L3650